=== PATIENT | female | born 1970 | race Caucasian/White ===

== ENCOUNTER 2024-10-20 12:30 | Outpatient (CLI) | payer MEDICAID ==
--- NOTE | 2024-10-20 15:19 | RADIOLOGY REPORT ---
EXAM: MR MRI LOWER EXTREMITY LEFT knee INDICATION: SPRAIN OF ANTERIOR CRUCIATE IGAMENT OF LEFT KNEE History: Patient had ACL replacement surgery TECHNIQUE: Multiplanar and multisequence MR imaging of the left ankle was performed in the absence of gadolinium contrast. COMPARISON: None FINDINGS: The medial meniscus is normal in appearance There is absence of a large portion of the body and posterior horn of the lateral meniscus raising qu estion of prior surgical resection The posterior cruciate ligament is intact The reconstructed anterior cruciate ligament is intact The medial and lateral collateral ligaments are intact Quadriceps and patellar tendons are intact. Trace joint effusion Hyaline cartilage surfaces covering the patellofemoral joint are smooth. [ IMPRESSION: 1. Reconstructed anterior cruciate ligament is intact. 2. Probable prior resection of the body and posterior horn of the lateral meniscus 3. No acute bony or soft tissue injury.
[2024-10-22] MEDS ORDERED: verapamil 2.5 mg/ml inj IV ONE (11:30)
[2024-10-22] MEDS ORDERED: fentaNYL/PF 50MCG/1 ML 2ML syringe ONE (11:30)
[2024-10-22] MEDS ORDERED: midazolam 1 mg/ML 2ml injection ONE (11:30)
[2024-10-22] MEDS ORDERED: heparin 1,000unit/ml 10ml vial 10 ML ONE (11:31)
[2024-10-22] MEDS ORDERED: iohexol 350 MG/ML 50ML vial IV ONE (11:31)
[2024-10-22] MEDS ORDERED: nitroGLYCERIN 500mcg/5mL D5W 5 ML IV ONE (11:35)
[2024-10-22] MEDS ORDERED: LIDOcaine 1% 30ml preserv. free vial ONE (12:08)
== END 2024-10-20 23:59 | disposition home or self-care (01) ==
LOC: MRI02 12:30
PROVIDERS: ATTEND Orthopaedic Surgery
DX: S83.512A Sprain of anterior cruciate ligament of left knee, initial encounter (principal); S83.232A Complex tear of medial meniscus, current injury, left knee, initial encounter; X58.XXXA Exposure to other specified factors, initial encounter; Y93.89 Activity, other specified; Y92.89 Other specified places as the place of occurrence of the external cause; Y99.8 Other external cause status
CPT/HCPCS: 73721